=== PATIENT | female | born 1985 | race Caucasian/White ===

== ENCOUNTER 2016-09-07 13:54 | Emergency (ER) | payer OTHER ==
--- NOTE | ~2016-09-07 | CT4 ---
[facility] A Service of [facility] RADIOLOGY TEXT RESULTS PATIENT: DELBERT LEONE LOCATION: [facility] : 85 UNIT #: [id number] AGE: [address]: Venancio Morales MD SEX: F ORDER DR: [id number] [facility] [address] [place], [place] [address] [id number] MR#: [id number] Acc #: [id number] NAME: DELBERT LEONE : 1985 SEX: F STUDY DATE/TIME: 09/07/2016 16:26 UNIT: [facility] ROOM: STUDY DESCRIPTION: CT Abd and Pelv Wo Cont Attending Physician: Javan Morales M.D. Ordering Physician: Scott Fox M.D. Primary Care Physician: Felipa Garcia M.D. MEDICAL IMAGING REPORT This report is preliminary unless electronic signature is present EXAM CT scan of the abdomen and pelvis without contrast. DATE OF EXAM 09/07/2016 HISTORY Left side back pain and right side flank pain for 2 days with hematuria. History of kidney stones. Evaluate for obstructing renal calculus. TECHNIQUE Spiral CT was performed through the abdomen and pelvis without oral or intravenous contrast administration using renal stone protocol. This CT exam was performed with one or more of the following radiation dose reduction techniques: automatic exposure control, adjustment of mA and/or kV according to patient size, and iterative reconstruction. FINDINGS ABDOMEN: There is no obstructing renal or ureteral calculus. 2 mm nonobstructing stone is seen in the left kidney. The right kidney is normal. The liver, spleen, pancreas and adrenal glands are normal. The gallbladder is surgically absent. PELVIS FINDINGS: There is a small periumbilical hernia containing only fat. The gut, mesenteric and nunu structures are normal. There is no free fluid in the abdomen or pelvis. The lung bases are normal. IMPRESSION 1. No obstructing renal or ureteral calculus. 2. Tiny nonobstructing left renal stone. 3. Surgical absence of the gallbladder. 4. Small periumbilical hernia containing only fat. [facility] A Service of [facility] RADIOLOGY TEXT RESULTS PATIENT: DELBERT LEONE LOCATION: [facility] : 85 UNIT #: [id number] AGE: [address]: Venancio Morales MD SEX: F ORDER DR: Dictated by... Suresh Dumont M.D. THIS IS AN ELECTRONICALLY VERIFIED REPORT Suresh Dumont M.D. at 09/08/2016 3:16 PM LUCERO/wily TD: 09/07/2016 20:49 JOB #: [id number] MEDICAL IMAGING REPORT Page 1 of 1 COPY
[2016-09-07 13:25] LABS: BASOPHIL# 0.1 X10e3 (0-0.3); BASOPHIL% 0.5 % (0-2.5); EOSINOPHIL# 0.2 X10e3 (0-0.7); EOSINOPHIL% 1.5 % (0.0-7.0); HEMATOCRIT 43.3 % (35.0-45.0); HEMOGLOBIN 13.8 gm/dL (12.0-16.0); LYMPHOCYTE# 3.9 X10e3 (1.0-3.5); LYMPHOCYTE% 34.5 % (17.0-45.0); MEAN CELL VOLUME 86.3 FL (83-96); MEAN CORPUSCULAR HEMOGLOBIN 27.4 PG (28-34); MEAN CORPUSCULAR HGB CONC 31.8 g/dL (30-36); MEAN PLATELET VOLUME 9.6 FL (6.5-11.5); MONOCYTE# 0.5 X10e3 (0-1.0); MONOCYTE% 4.2 % (3.0-12.0); NEUTROPHIL# 6.7 X10e3 (1.5-7.1); NEUTROPHIL% 59.3 % (40-75); PLATELET COUNT 371 X10e3 (140-420); RED BLOOD COUNT 5.02 X10e (3.90-5.30); RED CELL DISTRIBUTION WIDTH 14.4 % (11.0-15.5); WHITE BLOOD COUNT 11.2 X10e3 (4.0-10.5)
[2016-09-07 13:37] LABS: DIFF IND NO
[2016-09-07 13:47] LABS: ALBUMIN SERUM 4.3 g/dL (3.5-5.0); ALKALINE PHOSPHATASE 87 U/L (32-92); ALT (SGPT) 26 U/L (10-40); AST (SGOT) 22 U/L (10-42); BILIRUBIN,TOTAL 0.1 mg/dL (0.2-2.0); BLOOD UREA NITROGEN 8 mg/dL (9-23); BUN/CREATININE RATIO 11.42; CALCIUM SERUM 9.1 mg/dL (8.4-10.2); CARBON DIOXIDE 24 mmol/L (22-31); CHLORIDE 102 mmol/L (100-111); CREATININE SERUM 0.7 mg/dL (0.6-1.4); GLOM FILT RATE Estimated 115.5 mL/min (>60); GLUCOSE FASTING 80 mg/dL (70-110); LIPASE 18 U/L (22-51); POTASSIUM 3.8 mmol/L (3.5-5.1); PROTEIN TOTAL SERUM 8.6 g/dL (6.0-8.3); SODIUM 137 mmol/L (135-145)
[2016-09-07 13:51] LABS: URINE SOURCE CLEAN CATCH
[2016-09-07 13:52] LABS: BILIRUBIN, DIRECT <0.1 mg/dL (0.0-0.2)
[~2016-09-07 13:54] MED LIST: ACETAMINOPHEN; ACETAMINOPHEN PO; ANSAID100 MG PO; BACTRIM DS TABL1 TA1 PO; BACTRIM DS TABL1 TA2 PO; BACTRIM DS TABL1 TAB PO; BENADRYL ALLERG25 M1 PO; CALCIUM MAGNESI1 TAB PO; CELEXA PO; CIPRO PO; DEPAKOTE ER; DICLOFENAC PO; DICYCLOMINE HCL20 MG PO; FISH OIL 1,0001 EAC3 PO; FISH OIL 1,001000 MG PO; FLEXERIL10 M1 PO; FLEXERIL10 MG PO; GEODAN PO; GLUCOSAMINE-CHO1 CA1 PO; HALDOL PO; IBUPROFEN800 MG PO; LITHIUM PO; LORTAB 5/500 TA1 TA1 PO; MAGNESIUM/CALCIUM PO; MIRALAX255 GM PO; MIRAPEX PO; MOBIC15 MG PO; MOTRIN600 M1 PO; NEURONTIN PO; NEURONTIN300 MG PO; NIACIN500 M2 PO; NO MEDICATIONS; NORCO 7.5-3251 EACH PO; PAIN PATCH TOP; PERCOCET PO; PERCOCET5/325 PO; PHENERGAN PO; PHENERGAN PR; PHENERGAN SUPP25 MG PR; PHENERGAN12.5 MG/SU RC; PHENERGAN25 M1 PO; PHENERGAN25 MG PO; PHENERGAN25 MG RC; PRILOSEC20 MG DOB; PRILOSEC20 MG PO; PYRIDIUM PO; REGLAN PO; SEROQUEL PO; SLEEPING MED; TALWIN NX TABLE1 TAB PO; TALWIN NX50 MG TAB DOB; TEGRETOL PO; TEGRETOL XR; TIZANIDINE HCL4 M1 PO; TOPAMAX PO; TRAMADOL HCL50 M1 PO; TRAZODONE HCL150 MG PO; TYLENOL #3 PO; ULTRAM PO; UNISOM50 M1 PO; VICODIN 5/1 TAB 5/50 PO; VICODIN 5/500 T1 TAB; VICODIN 5/500 T1 TAB PO; VOLTAREN100 GM TP; VOLTAREN75 MG PO; ZANTAC; ZANTAC PO; ZANTAC150 M1 PO; ZANTAC150 MG PO; [UNRECOGNIZED DRUG - OTHER] TP; [UNRECOGNIZED DRUG - REMARK]
[2016-09-07 14:01] LABS: URINE APPEARANCE CLEAR; URINE BILIRUBIN NEG (NEG); URINE BLOOD NEG (NEG); URINE COLOR YELLOW; URINE GLUCOSE NORM (NORM); URINE KETONE NEG (NEG); URINE LEUKOCYTE ESTERASE NEG (NEG); URINE NITRATE NEG (NEG); URINE PH 6.5 (5-8); URINE PROTEIN NEG (NEG); URINE SPECIFIC GRAVITY 1.005 (1.003-1.035); URINE UROBILINOGEN NORM (NORM)
[2016-09-07 14:03] LABS: CULTURE INDICATED? NO
== END 2016-09-07 18:00 | disposition home or self-care (01) ==
LOC: CED 13:54
DX: R35.0 Frequency of micturition (principal); R10.9 Unspecified abdominal pain; J45.909 Unspecified asthma, uncomplicated; F31.9 Bipolar disorder, unspecified; F20.9 Schizophrenia, unspecified; Z87.442 Personal history of urinary calculi; Z98.890 Other specified postprocedural states; Z88.5 Allergy status to narcotic agent; Z88.8 Allergy status to other drugs, medicaments and biological substances
CPT/HCPCS: 36415; 74176; 80048; 80076; 81003; 83690; 84703; 85025; 96374; 96375; 99284; J1885; J2765